=== PATIENT | male | born 1990 | race African-American/Black ===

== ENCOUNTER 2019-12-29 04:30 | Emergency (ER) | payer BC ==
[~2019-12-29] VITALS: Ht 177.8 cm; Wt 102.1 kg
[2019-12-29 04:40] VITALS: BP 151/86
[2019-12-29] MEDS ORDERED: Ketorolac 60mg Inj IM ONE (05:00)
--- NOTE | 2019-12-29 05:06 | Emergency Room Report ---
History of Present Illness General Chief Complaint: Chest Pain Source: Patient Present Illness HPI this is a 29 yo male with no pmh who presents with c/o chest pain. onset around [place] and 1am. has cough and congestion for the last few days. said that pain came on after sexual intercourse. pain is mid sternum, sharp in nature. worse with lying flat and leaning forward. better sitting up and standing. worse with inspiration. no n/v/d. no sob. pain is 8/10. no radiation. no diaphoresis. Allergies: Coded Allergies: No Known Allergies (Unverified , 12/29/19) COVID-19 Screening Contact w/high risk pt: No Recent Travel to affected area: No Experienced COVID-19 symptoms?: Yes COVID-19 symptoms experienced: Cough, Runny Nose Patient History Past Medical History: see triage record, old chart reviewed Past Surgical History: none Pertinent Family History: none Social History: Denies: smoking Immunizations: other Reviewed Nursing Documentation: PMH: Agreed; PSxH: Agreed Nursing Documentation-PMH Past Medical History: No Stated History Review of Systems Eye: Denies: eye pain, blurred vision ENT: Denies: ear pain, nose congestion, throat swelling Respiratory: Denies: cough, shortness of breath Cardiovascular: Reports: chest pain; Denies: palpitations Gastrointestinal: Denies: abdominal pain, diarrhea, nausea, vomiting Musculoskeletal: Denies: back pain, joint pain Skin: Denies: rash Neurological: Denies: headache, numbness Endocrine: Denies: increased thirst, increased urine Hematologic/Lymphatic: Denies: easy bruising All Other Systems: negative except mentioned in HPI Physical Exam Vital Signs Date Time Temp Pulse Resp B/P (MAP) Pulse Ox O2 Delivery O2 Flow Rate FiO2 12/29/19 04:34 98.6 115 20 151/86 (107) 96 Room Air vitals with htn Sp02 EP Interpretation: reviewed, normal General Appearance: well appearing, no apparent distress, alert Head: normocephalic, atraumatic Eyes: bilateral eye PERRL, bilateral eye EOMI ENT: hearing grossly normal, normal pharynx Neck: full range of motion, supple, no meningismus Respiratory: chest non-tender, lungs clear, normal breath sounds Cardiovascular #1: regular rate, rhythm, no murmur Gastrointestinal: normal bowel sounds, non tender, no mass, no organomegaly, no bruit, non-distended Musculoskeletal: back normal, normal range of motion, gait/station normal Psychiatric: mood/affect normal Medical Decision Making Diagnostic Impression: Primary Impression: Pericarditis Qualified Codes: I30.9 - Acute pericarditis, unspecified Additional Impression: Chest pain Qualified Codes: R07.9 - Chest pain, unspecified ER Course pt presents with cp. ekg c/w pericarditis. no e/o acs, pe, dissection to name a few. EKG Diagnostic Results Rate: normal Rhythm: NSR ST Segments: other - diffuse ST elevation ASA given to the pt in ED: Yes Rhythm Strip Diag. Results EP Interpretation: yes Rate: 110 Rhythm: NSR, no PVC's, no ectopy Chest X-Ray Diagnostic Results Chest X-Ray Diagnostic Results : Chest X-Ray Ordered: Yes # of Views/Limited/Complete: 1 View Indication: Chest Pain EP Interpretation: Yes Interpretation: no consolidation, no effusion, no pneumothorax, no acute cardiopulmonary disease Impression: No acute disease Electronically Signed by: Valente Chan MD Last Vital Signs Date Time Temp Pulse Resp B/P (MAP) Pulse Ox O2 Delivery O2 Flow Rate FiO2 12/29/19 04:34 98.6 115 20 151/86 (107) 96 Room Air Status: improved Disposition: HOME, SELF-CARE Condition: Stable Referrals: NOT CHOSEN IPA/,REFERRING (PCP) Valente Chan MD Dec 29, 2019 05:06
[2019-12-29] MEDS ORDERED: Dexamethasone 4mg/ml vial IVP ONE (05:30)
--- NOTE | 2019-12-29 05:48 | Diagnostic Imaging Report ---
EXAM: XR Chest, 1 View CLINICAL HISTORY: CP TECHNIQUE: Frontal view of the chest. COMPARISON: No relevant prior studies available. FINDINGS: Lungs: Unremarkable. No consolidation. Pleural space: Unremarkable. No pneumothorax. Heart: Unremarkable. No cardiomegaly. Mediastinum: Unremarkable. Bones/joints: Unremarkable. IMPRESSION: No radiographic evidence of acute cardiopulmonary disease.
[2019-12-29 05:52] LABS: BASOPHILS % (AUTO) 1.5 % (0.0-2.0); EOSINOPHILS % (AUTO) 0.4 % (0.0-3.0); HEMATOCRIT 45.1 % (42.0-52.0); HEMOGLOBIN 15.1 G/DL (14.2-18.0); LYMPHOCYTES % (AUTO) 13.4 % (20.0-45.0); MEAN CORPUSCULAR VOLUME 81 FL (80-99); MONOCYTES % (AUTO) 5.6 % (1.0-10.0); NEUTROPHILS % (AUTO) 79.1 % (45.0-75.0); PLATELET COUNT 298 K/UL (150-450); RED BLOOD COUNT 5.56 M/UL (4.70-6.10); RED CELL DISTRIBUTION WIDTH 11.8 % (11.6-14.8); WHITE BLOOD COUNT 15.9 K/UL (4.8-10.8)
[2019-12-29 05:59] LABS: ANION GAP 11 mmol/L (5-15); BLOOD UREA NITROGEN 11 mg/dL (7-18); CALCIUM 9.1 MG/DL (8.5-10.1); CARBON DIOXIDE 25 MMOL/L (21-32); CHLORIDE 100 MMOL/L (98-107); POTASSIUM 3.7 MMOL/L (3.5-5.1); SODIUM 136 MMOL/L (136-145)
[2019-12-29 07:37] VITALS: BP 148/84
[2019-12-29] MEDS ORDERED: Indomethacin 25mg cap ORAL SCH (09:00)
[2019-12-29 09:18] VITALS: BP 148/84
[2019-12-29] MEDS ORDERED: LORazepam 0.5mg tab ORAL ONE (09:45)
[2019-12-29 11:15] VITALS: BP 140/80
--- NOTE | 2019-12-29 11:45 | History and Physical Report ---
DATE OF ADMISSION: 12/29/2019 CHIEF COMPLAINT: Chest pain, cough, and congestion. HISTORY OF PRESENT ILLNESS: The patient is a 29-year-old male complaints of four days of cough and congestion. He had chest pain that prompted his going to the ER. On evaluation there, troponin was negative. EKG showed diffuse ST elevations consistent with pericarditis. The patient received a dose of Toradol and prednisone, and had significant improvement in his pain. He is now admitted for further evaluation and care. PAST MEDICAL HISTORY: None. PAST SURGICAL HISTORY: None. CURRENT MEDICATIONS: None. FAMILY HISTORY: None. SOCIAL HISTORY: Negative for alcohol or drugs. The patient smokes marijuana. REVIEW OF SYSTEMS: Negative except for chest pain and cough. PHYSICAL EXAMINATION: VITAL SIGNS: Temperature 98, pulse 103, respirations 22, blood pressure 148/84. GENERAL: The patient is well developed, in no apparent distress. HEART: Regular rate and rhythm. No rubs. LUNGS: Clear. ABDOMEN: Soft, nontender, nondistended. EXTREMITIES: Without clubbing, cyanosis, or edema. LABORATORY AND DIAGNOSTIC DATA: D-dimer is negative. White count is 16, hemoglobin 15, platelets 298,000. Sodium 136, potassium 3.7. Echo shows no pericardial effusion. ASSESSMENT AND PLAN: This is a pleasant male admitted with pericarditis, likely viral, cannot rule out coronavirus disease although the patient now feels completely improved. He will be swabbed for coronavirus, but he is stable for discharge. He will be discharged on nonsteroidal and prednisone for pericarditis. The patient has been instructed to call the office and follow up his coronavirus test . Joe Gan M.D. DR: IRVIN JOB#: [id number] CC:
== END 2019-12-29 11:15 | disposition home or self-care (01) ==
LOC: EMR 04:50 → 2E 06:47 → UNDOADMIN 06:47 → EDBEDREQ 07:49 → EMR 11:15
DX: I30.9 Acute pericarditis, unspecified (principal); R07.9 Chest pain, unspecified
CPT/HCPCS: 36415; 71045; 80048; 84484; 85025; 85379; 85651; 93005; 93306; 96361; 96372; 96374; 99284; J1100; J7030; U0002; 87635